=== PATIENT | male | born 1965 | race Caucasian/White ===

== ENCOUNTER 2018-07-07 17:33 | Emergency (ER) | payer OTHER, SELFPAY ==
[2018-07-07 17:34] VITALS: BP 155/95; PULSE 78; RESP 16; TEMP 36.6; O2SAT 96; BMI 47.5
--- NOTE | 2018-07-07 18:43 | RAD_ITS ---
STUDY: X-RAY - LEFT ANKLE REASON FOR EXAM: Male, 53 years old. Twisted left ankle. TECHNIQUE: 3 view(s) of the ankle. COMPARISON: None. FINDINGS: Normal visualized distal tibia and fibula. Normal lateral malleolus. Normal tibiotalar articulation and ankle mortise. There is a well-corticated fracture fragment medial to the talus, consistent with remote, healed avulsion fracture. Visualized talus is otherwise unremarkable. Normal visualized calcaneus. The visualized subtalar, talonavicular, calcaneocuboid and tarsal articulations are normal. There is mild lateral soft tissue swelling. RAD/Ankle min 3 Views IMPRESSION: 1. Lateral soft tissue swelling. Otherwise, no acute process. 2. Old healed talar avulsion fracture. Electronically Signed: Nusrat Kirby MD at 19:05 EDT Tel , Service support ,
--- NOTE | 2018-07-07 19:07 | ED.VISSUMM ---
- ER Visit Summary Date of Service: 07/07/18 Chief Complaint: Left ankle injury History of Present Illness: The patient is a 53 M left ankle injury 4 PM today. Walking slept on the unable pavement falling down. Able to ambulate. Took 2 Advil's. Did fall onto his right elbow and left hand. Abrasion contusion however no no pain. No head injuries. Visiting from [place]. No other complaints. Physical Examination: General: Alert and oriented ?3, no acute distress HEENT: Normocephalic, atraumatic. Moist mucosa membranes Neck: supple, nontender. Cardiovascular: Regular rate and rhythm, no murmurs Respiratory: Normal breath sounds, symmetric, no distress Abdomen: Soft, nontender, nondistended Extremities: Left lower extremity no knee tenderness. No deformities. There is no bony tenderness of malleolus is slight tenderness at the deltoid ligament tenderness at ATFL. No foot tenderness. Skin intact. Neurovascular intact. Neuro: no focal neurological deficits. Skin: Abrasion of the humerus laterally with no active bleeding. Contusion left thenar has not tender. Test Results: Left ankle: No fracture or dislocation. Emergency Department Course and Treatment: X-ray obtained negative. Advil prior to arrival. Aircast provided. His abrasions were cleaned and dressed by nursing. Continue Advil as needed every 6 hours. Rice therapy discussed. Follow-up as an outpatient. All questions were answered. Treatment Plan: [] Disposition: Discharge Impression: 1. Left ankle sprain 2. Abrasions This note was generated with [employer] dictation software. It may contain incorrect words, spelling, and punctuation that were not noted in review of the chart prior to signing ED Disposition - Plan for ED Patient: Disposition: Home or Assisted Living Diagnosis: Left ankle sprain, Abrasion Instructions: ED Sprain Ankle W X Ray Additional Instructions: Continue Advil 600 mg every 6 hours as needed. Continue to ice and elevate.
--- NOTE | 2018-07-07 19:10 | ED.DCSUM_ITS ---
- ER Visit Summary Date of Service: 07/07/18 Chief Complaint: Left ankle injury History of Present Illness: The patient is a 53 M left ankle injury 4 PM today. Walking slept on the unable pavement falling down. Able to ambulate. Took 2 Advil's. Did fall onto his right elbow and left hand. Abrasion contusion however no no pain. No head injuries. Visiting from [place]. No other complaints. Physical Examination: General: Alert and oriented ?3, no acute distress HEENT: Normocephalic, atraumatic. Moist mucosa membranes Neck: supple, nontender. Cardiovascular: Regular rate and rhythm, no murmurs Respiratory: Normal breath sounds, symmetric, no distress Abdomen: Soft, nontender, nondistended Extremities: Left lower extremity no knee tenderness. No deformities. There is no bony tenderness of malleolus is slight tenderness at the deltoid ligament tenderness at ATFL. No foot tenderness. Skin intact. Neurovascular intact. Neuro: no focal neurological deficits. Skin: Abrasion of the humerus laterally with no active bleeding. Contusion left thenar has not tender. Test Results: Left ankle: No fracture or dislocation. Emergency Department Course and Treatment: X-ray obtained negative. Advil prior to arrival. Aircast provided. His abrasions were cleaned and dressed by nursing. Continue Advil as needed every 6 hours. Rice therapy discussed. Follow-up as an outpatient. All questions were answered. Treatment Plan: [] Disposition: Discharge Impression: 1. Left ankle sprain 2. Abrasions This note was generated with [employer] dictation software. It may contain incorrect words, spelling, and punctuation that were not noted in review of the chart prior to signing ED Disposition - Plan for ED Patient: Disposition: Home or Assisted Living Diagnosis: Left ankle sprain, Abrasion Instructions: ED Sprain Ankle W X Ray Additional Instructions: Continue Advil 600 mg every 6 hours as needed. Continue to ice and elevate.
[2018-07-07] MEDS: BACITRACIN 15 GM Tube 1 APPLIC TOPICAL (19:28)
== END 2018-07-07 19:29 | disposition home or self-care (01) ==
PROVIDERS: Emergency Provider Emergency Medicine
DX: S93.402A Sprain of unspecified ligament of left ankle, initial encounter (principal); S50.311A Abrasion of right elbow, initial encounter; S60.222A Contusion of left hand, initial encounter; W01.0XXA Fall on same level from slipping, tripping and stumbling without subsequent striking against object, initial encounter; Y93.01 Activity, walking, marching and hiking; Y92.9 Unspecified place or not applicable
CPT/HCPCS: 73610; 99283